=== PATIENT | male | born 1955 | race Caucasian/White ===

== ENCOUNTER 2020-06-15 07:56 | Outpatient (REF) | payer MEDICARE, MEDICAID, SELFPAY | END 2020-06-15 07:57 | disposition home or self-care (01) | LOC: HO.BBR 07:56 | PROVIDERS: PCP Internal Medicine; Visit Provider Internal Medicine Hematology | DX: D45 Polycythemia vera (principal) | CPT/HCPCS: 85018; 99195 ==

== ENCOUNTER 2020-06-26 09:28 | Outpatient (REF) | payer MEDICARE, MEDICAID, SELFPAY ==
[2020-06-26 12:03] LABS: Alanine Aminotransferase 27 U/L (0-40); Albumin Level 4.4 g/dL (3.5-5.0); Alkaline Phosphatase 99 U/L (39-117); Anion Gap 12 (12-20); Aspartate Amino Transferase 22 U/L (5-37); Bilirubin Total 0.4 mg/dL (0.0-1.0); Blood Urea Nitrogen 15 mg/dL (9-16); Calcium 10.3 mg/dL (8.4-10.2); Carbon Dioxide 29 mmol/L (22-29); Chloride 102 mmol/L (96-108); Cholesterol 231 mg/dL; Estimated Glomerular Filt Rate > 60; Glucose Fasting 92 mg/dL (60-99); HDL Cholesterol 50 mg/dL; LDL Cholesterol Calculated 141 mg/dl; Potassium 5.3 mmol/l (3.3-5.1); Sodium 138 mmol/L (135-145); Total Protein 7.1 g/dL (6.5-8.0); Triglycerides 202 mg/dL
== END 2020-06-26 09:29 | disposition home or self-care (01) ==
LOC: HO.HMGCLDS 09:28
PROVIDERS: PCP Internal Medicine; Visit Provider Internal Medicine
DX: E78.2 Mixed hyperlipidemia (principal); Z12.11 Encounter for screening for malignant neoplasm of colon; Z00.00 Encounter for general adult medical examination without abnormal findings; Z12.12 Encounter for screening for malignant neoplasm of rectum
CPT/HCPCS: 80053; 80061

== ENCOUNTER 2020-07-13 08:02 | Outpatient (REF) | payer MEDICARE, MEDICAID, SELFPAY | END 2020-07-13 08:03 | disposition home or self-care (01) | LOC: HO.BBR 08:02 | PROVIDERS: PCP Internal Medicine; Visit Provider Internal Medicine Hematology | DX: D45 Polycythemia vera (principal) | CPT/HCPCS: 85018; 99195 ==

== ENCOUNTER 2020-08-11 08:01 | Outpatient (REF) | payer MEDICARE, MEDICAID, SELFPAY | END 2020-08-11 08:02 | disposition home or self-care (01) | LOC: HO.BBR 08:01 | PROVIDERS: Visit Provider Internal Medicine Hematology | DX: D45 Polycythemia vera (principal) | CPT/HCPCS: 36415; 85018 ==

== ENCOUNTER 2020-09-24 10:58 | Outpatient (REF) | payer MEDICARE, MEDICAID, SELFPAY | END 2020-09-24 10:59 | disposition home or self-care (01) | LOC: HO.BBR 10:58 | PROVIDERS: Visit Provider Internal Medicine Hematology | DX: D45 Polycythemia vera (principal) | CPT/HCPCS: 36415; 85014; 85018; 99195 ==

== ENCOUNTER 2020-11-09 14:48 | Outpatient (REF) | payer MEDICARE, MEDICAID, SELFPAY | END 2020-11-09 14:49 | disposition home or self-care (01) | LOC: HO.BBR 14:48 | PROVIDERS: Visit Provider Internal Medicine Hematology | DX: D45 Polycythemia vera (principal) | CPT/HCPCS: 36415; 85018 ==

== ENCOUNTER 2020-12-16 12:53 | Outpatient (REF) | payer MEDICARE, MEDICAID, SELFPAY | END 2020-12-16 12:54 | disposition home or self-care (01) | LOC: HO.BBR 12:53 | PROVIDERS: Visit Provider Internal Medicine Hematology | DX: D45 Polycythemia vera (principal) | CPT/HCPCS: 85014; 85018; 99195 ==

== ENCOUNTER 2021-01-14 10:17 | Outpatient (REF) | payer MEDICARE, MEDICAID, SELFPAY ==
[2021-01-14 11:39] LABS: Alanine Aminotransferase 30 U/L (0-40); Albumin Level 4.4 g/dL (3.5-5.0); Alkaline Phosphatase 112 U/L (39-117); Anion Gap 14 (12-20); Aspartate Amino Transferase 24 U/L (5-37); Bilirubin Total 0.5 mg/dL (0.0-1.0); Blood Urea Nitrogen 20 mg/dL (9-16); Carbon Dioxide 26 mmol/L (22-29); Chloride 103 mmol/L (96-108); Estimated Glomerular Filt Rate > 60; Glucose Fasting 97 mg/dL (60-99); Potassium 5.5 mmol/L (3.3-5.1); Sodium 137 mmol/L (135-145); Total Protein 7.2 g/dL (6.5-8.0)
[2021-01-14 11:52] LABS: Calcium 11.1 mg/dL (8.4-10.2)
[2021-01-15 10:37] LABS: Calcium, Ionized 5.8 mg/dL (4.8-5.6)
[2021-01-15 17:57] LABS: Calcium (PTHI) 10.8 mg/dL (8.6-10.3); PTHI 66 pg/mL (14-64)
== END 2021-01-14 10:18 | disposition home or self-care (01) ==
LOC: HO.LAB 10:17
PROVIDERS: PCP Internal Medicine; Visit Provider Internal Medicine
DX: E78.5 Hyperlipidemia, unspecified (principal); E83.52 Hypercalcemia
CPT/HCPCS: 36415; 80053; 82330; 83970

== ENCOUNTER 2021-01-14 12:54 | Outpatient (REF) | payer MEDICARE, MEDICAID, SELFPAY | END 2021-01-14 12:55 | disposition home or self-care (01) | LOC: HO.BBR 12:54 | PROVIDERS: Visit Provider Internal Medicine Hematology | DX: D45 Polycythemia vera (principal); E83.52 Hypercalcemia; E78.5 Hyperlipidemia, unspecified | CPT/HCPCS: 36415; 80053; 82330; 83970; 85018; 99195 ==

== ENCOUNTER 2021-03-01 10:42 | Outpatient (REF) | payer MEDICARE, MEDICAID, SELFPAY | END 2021-03-01 10:43 | disposition home or self-care (01) | LOC: HO.BBR 10:42 | PROVIDERS: Visit Provider Internal Medicine Hematology | DX: D45 Polycythemia vera (principal) | CPT/HCPCS: 85018 ==

== ENCOUNTER → 2021-03-24 14:36 | Outpatient (BNVA) | payer MEDICARE, MEDICAID, SELFPAY | PROVIDERS: PCP Internal Medicine; Visit Provider Internal Medicine | DX: E21.3 Hyperparathyroidism, unspecified (principal); E55.9 Vitamin D deficiency, unspecified; D45 Polycythemia vera; E78.5 Hyperlipidemia, unspecified; Z88.1 Allergy status to other antibiotic agents; Z88.0 Allergy status to penicillin | CPT/HCPCS: 99202 ==

== ENCOUNTER 2021-04-01 09:56 | Outpatient (REF) | payer MEDICARE, MEDICAID, SELFPAY ==
[2021-04-01 12:01] LABS: Alanine Aminotransferase 27 U/L (0-40); Albumin Level 4.2 g/dL (3.5-5.0); Alkaline Phosphatase 86 U/L (39-117); Anion Gap 11 (12-20); Aspartate Amino Transferase 25 U/L (5-37); Bilirubin Total 0.4 mg/dL (0.0-1.0); Blood Urea Nitrogen 14 mg/dL (9-16); Calcium 10.2 mg/dL (8.4-10.2); Carbon Dioxide 27 mmol/L (22-29); Chloride 105 mmol/L (96-108); Estimated Glomerular Filt Rate 59; Glucose Random 123 mg/dL (60-115); Phosphorus 3.6 mg/dL (2.7-4.5); Sodium 138 mmol/L (135-145); Total Protein 6.7 g/dL (6.5-8.0)
[2021-04-03 01:41] LABS: Calcium (PTHI) 10.3 mg/dL (8.6-10.3); PTHI 55 pg/mL (14-64)
[2021-04-04 13:42] LABS: Prot Elec - Albumin 4.3 g/dL (3.8-4.8); Prot Elec - Alpha1 0.3 g/dL (0.2-0.3); Prot Elec - Alpha2 0.6 g/dL (0.5-0.9); Prot Elec - Beta 1 0.4 g/dL (0.4-0.6); Prot Elec - Beta 2 0.3 g/dL (0.2-0.5); Prot Elec - Gamma 0.9 g/dL (0.8-1.7); Prot Elec - Total Protein 6.8 g/dL (6.1-8.1)
== END 2021-04-01 09:57 | disposition home or self-care (01) ==
LOC: HO.BBR 09:56
PROVIDERS: PCP Internal Medicine; Referring Provider Internal Medicine; Visit Provider Internal Medicine Hematology
DX: D45 Polycythemia vera (principal); E21.3 Hyperparathyroidism, unspecified; E55.9 Vitamin D deficiency, unspecified
CPT/HCPCS: 36415; 80053; 82306; 83970; 84100; 84165; 85014; 85018; 99195

== ENCOUNTER 2021-04-09 10:46 | Outpatient (REF) | payer MEDICARE, MEDICAID, SELFPAY ==
--- NOTE | ~2021-04-09 | MM_ITS ---
EXAMINATION: BONE DENSITOMETRY CLINICAL INDICATION: Hyperparathyroidism, unspecified. COMPARISON: Baseline BD dated 10/01/2013. TECHNIQUE: Using a [employer] DXA System (software version: 13.1) manufactured by [employer], dual-energy x-ray absorptiometry was performed of the lumbar spine, left hip, and left forearm radius 33%. The images are of good technical quality. Summary results are attached. FINDINGS: AP SPINE L1-L4: There is levocurvature lumbar spine and degenerative changes which may cause over estimation of the lumbar bone mineral density. Current: BMD 1.915 g/cm2, Z-score 5.6, T-score 5.8, normal, 9.9% increase from baseline (<5% change is not significant). Baseline: BMD 1.742 g/cm2. LEFT FEMUR, NECK: Current: BMD 1.330 g/cm2, Z-score 2.6, T-score 2.0, normal. Baseline: BMD 1.346 g/cm2. LEFT FEMUR, TOTAL: Current: BMD 1.364 g/cm2, Z-score 1.9, T-score 1.8, normal, 2.5% decrease from baseline (<5% change is not significant). Baseline: BMD 1.399 g/cm2. LEFT FOREARM RADIUS 33%: BMD 1.032 g/cm2, Z-score 1.0, T-score 0.4, normal, 2.0% increase from baseline (<5% change is not significant). Baseline: BMD 1.012 g/cm2. IDENTIFIED RISK FACTORS: Hyperparathyroidism, tobacco use (current smoker), height loss. HISTORY OF FRACTURE: None listed. MEDICATIONS: None listed. MM/XR DEXA appendicular skeleton IMPRESSION: 1. DIAGNOSIS: Normal bone density based on the lowest T-score value of 0.4 in the forearm radius 33% applying World Health Organization criteria. 2. 10-YEAR FRACTURE RISK PREDICTION, FRAX: Major osteoporotic fracture (clinical spine, forearm, hip or shoulder) 3.1%. Hip fracture 0.1%. 3. Treatment Recommendations: NOF guidelines recommend consideration for treatment in postmenopausal women and men age 50 and older presenting with the following: -A hip or vertebral (clinical or morphometric) fracture. -T-score less than or equal to -2.5 at the femoral neck or spine after appropriate evaluation to exclude secondary causes. -Low bone mass at the hip or spine and a 10-year fracture probability by FRAX of greater than or equal to 3% for hip fracture or greater than or equal to 20% for major osteoporotic fracture based on the [place] adapted WHO algorithm. 4. Other Recommendations: All treatment decisions require clinical judgment and consideration of individual patient factors, including patient preferences, comorbidities, previous drug use, risk factors not captured in the FRAX model (e.g. frailty, falls, vitamin D deficiency, increased bone turnover, interval significant decline in bone density) and possible under or overestimation of fracture risk by FRAX. FUTURE SCAN RECOMMENDATION: People with diagnosed cases of osteoporosis or at high risk for fracture should have regular bone mineral density tests. For patients eligible for Medicare, routine testing is allowed once every 2 years. The testing frequency can be increased to one year for patients who have rapidly progressing disease, those who are receiving or discontinuing medical therapy to restore bone mass, or have additional risk factors.
[2021-04-09 10:29] LABS: Total Volume 24 Hour Urine 1050 mL
[2021-04-09 10:32] LABS: Creatinine, 24Hr Urine 1.2 G/Day (1.0-2.0); Creatinine, mg/dL 115.18
[2021-04-10 17:07] LABS: Calcium, 24 Hr Urine 135 mg/24 h; Calcium/Creatinine Ratio 111 mg/g creat (30-210); Creatinine 24Hr Urine 1.22 g/24 h (0.50-2.15)
== END 2021-04-09 10:47 | disposition home or self-care (01) ==
LOC: HO.MAMMO 10:46
PROVIDERS: PCP Internal Medicine; Visit Provider Internal Medicine
DX: Z13.820 Encounter for screening for osteoporosis (principal); E21.3 Hyperparathyroidism, unspecified; F17.200 Nicotine dependence, unspecified, uncomplicated
CPT/HCPCS: 77081; 82340; 82570

== ENCOUNTER 2021-05-06 11:37 | Outpatient (REF) | payer MEDICARE, MEDICAID, SELFPAY | END 2021-05-06 11:38 | disposition home or self-care (01) | LOC: HO.BBR 11:37 | PROVIDERS: PCP Internal Medicine; Visit Provider Internal Medicine Hematology | DX: D45 Polycythemia vera (principal) | CPT/HCPCS: 85014; 85018; 99195 ==

== ENCOUNTER 2021-05-31 11:03 | Outpatient (REF) | payer MEDICARE, MEDICAID, SELFPAY | END 2021-05-31 11:04 | disposition home or self-care (01) | LOC: HO.BBR 11:03 | PROVIDERS: Visit Provider Internal Medicine Hematology | DX: D45 Polycythemia vera (principal) | CPT/HCPCS: 85018; 99195 ==

== ENCOUNTER 2021-06-28 10:30 | Outpatient (REF) | payer MEDICARE, MEDICAID, SELFPAY | END 2021-06-28 10:31 | disposition home or self-care (01) | LOC: HO.BBR 10:30 | PROVIDERS: PCP Internal Medicine; Visit Provider Internal Medicine Hematology | DX: D45 Polycythemia vera (principal) | CPT/HCPCS: 85018; 99195 ==

== ENCOUNTER 2021-08-02 10:40 | Outpatient (REF) | payer MEDICARE, MEDICAID, SELFPAY | END 2021-08-02 10:41 | disposition home or self-care (01) | LOC: HO.BBR 10:40 | PROVIDERS: Visit Provider Internal Medicine Hematology | DX: D45 Polycythemia vera (principal) | CPT/HCPCS: 85014; 85018; 99195 ==

== ENCOUNTER 2021-08-31 10:28 | Outpatient (REF) | payer MEDICARE, MEDICAID, SELFPAY | END 2021-08-31 10:29 | disposition home or self-care (01) | LOC: HO.BBR 10:28 | PROVIDERS: Visit Provider Internal Medicine Hematology | DX: D45 Polycythemia vera (principal) | CPT/HCPCS: 85018; 99195 ==